=== PATIENT | male | born 1995 | race Caucasian/White ===

== ENCOUNTER 2022-10-08 21:24 | Inpatient (IN) | payer MEDICAID, OTHER, SELFPAY ==
[2022-10-08 21:31] VITALS: BP 117/85; PULSE 82; RESP 22; TEMP 36.6; O2SAT 96; BMI 38.3
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
[2022-10-08 22:05] LABS: MANUAL DIFF FLAG NO
[2022-10-08 22:07] LABS: Basophils Absolute Auto 0.1 X10*3/uL (0.0-0.2); Eosinophils Absolute Auto 0.3 X10*3/uL (0.0-0.4); Eosinophils Percent Auto 3.7 % (0-4); Hematocrit 42.8 % (42.0-52.0); Hemoglobin 14.3 g/dl (14.0-18.0); Imm Gran Abs Auto 0.02 X10*3/uL (0.00-0.03); Imm Gran Pct Auto 0.2 % (0.0-0.4); Lymphocytes Absolute Auto 3.7 X10*3/uL (1.2-4.9); Mean Corpuscular HGB Conc 33.4 g/dl (31.0-36.0); Mean Corpuscular Hemoglobin 27.4 pg (27.0-33.0); Mean Platelet Volume 9.6 fL (9.4-12.4); Monocytes Percent Auto 10.4 % (2-11); Neutrophils Absolute Auto 4.1 x10*3/uL (2.0-8.3); Neutrophils Percent Auto 44.7 % (45-73); Platelet Count 249 X10*3/uL (160-400); Red Blood Count 5.22 X10*6/uL (4.60-5.80); Red Cell Distribution Width 13.7 % (11.0-16.0); White Blood Count 9.1 X10*3/uL (4.8-10.8)
[2022-10-08 22:08] LABS: Appearance Urine Clear; Color Urine Yellow; Glucose Urine UA Negative (Negative); Leukocyte Esterase Urine Negative (Negative); Nitrite Urine Negative (Negative); Urine Blood Negative (Negative); Urine Ketones Negative (Negative); Urine Protein Negative (Neg-Trace)
[2022-10-08 22:21] LABS: Amphetamine Screen Urine Not Detected (Not Detect); Barbiturates, Urine Not Detected (Not Detect); Benzodiazepines Screen Urine Not Detected (Not Detect); Cannabinoid Screen Urine POSITIVE (Not Detect); Cocaine Screen Urine Not Detected (Not Detect); Fentanyl, urine Not Detected (Not Detect); IDNOW Serial# 6674DD1D; Opiate Screen Urine Not Detected (Not Detect); Phencyclidine Screen Urine Not Detected (Not Detect)
[2022-10-08 22:22] LABS: COVID-19 Test Negative (Negative)
[2022-10-08 22:25] LABS: Acetaminophen LAB < 17 mcg/mL (<30); Alanine Aminotransferase 56 U/L (0-40); Alkaline Phosphatase 54 U/L (39-117); Anion Gap 13 (12-20); Aspartate Amino Transferase 31 U/L (5-37); Bilirubin Direct < 0.2 mg/dL (0.0-0.5); Bilirubin Total 0.2 mg/dL (0.0-1.0); Blood Urea Nitrogen 19 mg/dL (9-16); Calcium 9.1 mg/dL (8.4-10.2); Carbon Dioxide 23 mmol/L (22-29); Chloride 106 mmol/L (96-108); Estimated Glomerular Filt Rate > 60; Ethanol < 10 mg/dL; Glucose Random 96 mg/dL (60-115); Potassium 4.3 mmol/L (3.3-5.1); Salicylate < 5.0 mg/dL (15-30); Sodium 138 mmol/L (135-145); Total Protein 6.4 g/dL (6.5-8.0)
--- NOTE | 2022-10-09 | ECG_ITS ---
Test Reason : QT PROLONGATION Blood Pressure : / mmHG Vent. Rate : 060 BPM Atrial Rate : 060 BPM P-R Int : 136 ms QRS Dur : 102 ms QT Int : 422 ms P-R-T Axes : 050 045 035 degrees QTc Int : 422 ms Normal sinus rhythm Incomplete right bundle branch block Borderline ECG No previous ECGs available Referred By: Anna Steven Electronically Signed By:CHELY WYNN MD
--- NOTE | 2022-10-09 05:38 | PC.NURSE ---
Patient slept through the night, no distress observed/reported, behavior appropriate and non concerning, med rec completed/patient is not any medication at this time, per pharmacy claim history patient is off medication since February of last year, patient was assessed by [facility] in their clinic, disposition is section 12 inpatient bed search, VSS, will continue to monitor.
[2022-10-09 06:34] VITALS: BP 122/64; PULSE 116; RESP 14; TEMP 36.7; O2SAT 97
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
--- NOTE | 2022-10-09 17:44 | MHC.CARE ---
Seen by CARE team, he is bed search for [facility].
[2022-10-09] MEDS: OLANZapine 7.5 MG TABLET 15 MG PO (19:59)
[2022-10-09] MEDS: Divalproex Sodium ER 500 MG TAB.ER.24H PO (19:59)
[2022-10-09] MEDS: traZODone HCL 50 MG TABLET 150 MG PO (19:59)
--- NOTE | 2022-10-10 05:54 | PC.NURSE ---
Patient slept through the night, no distress observed/reported, behavior appropriate and non concerning, medication compliant, Disposition per [facility] is section 12 Inpatient Bed Search, VSS, will continue to monitor
[2022-10-10 06:23] VITALS: BP 136/77; PULSE 112; RESP 16; TEMP 36.6; O2SAT 97
[2022-10-10 14:00] VITALS: RESP 18
[2022-10-10] MEDS: traZODone HCL 50 MG TABLET 150 MG PO (20:12)
[2022-10-10] MEDS: Divalproex Sodium ER 500 MG TAB.ER.24H PO (20:12)
[2022-10-10] MEDS: OLANZapine 7.5 MG TABLET 15 MG PO (20:12)
[2022-10-10 23:39] LABS: Cholesterol 247 mg/dL; HDL Cholesterol 50 mg/dL; LDL Cholesterol Calculated 170 mg/dl; Triglycerides 135 mg/dL
[2022-10-10 23:53] LABS: Thyroid Stimulating Hormone 4.88 uIU/mL (0.32-4.0)
[2022-10-11 06:34] VITALS: BP 128/85; PULSE 115; RESP 19; TEMP 36.6; O2SAT 96
--- NOTE | 2022-10-11 07:15 | PC.NURSE ---
assumed care of patient, sec [address], resting comfortably in bed, plan for admission to [facility] today
[2022-10-11 07:17] LABS: Lipase 25 U/L (8-78)
[2022-10-11 07:44] LABS: Estimated Average Glucose 97 mg/dL
[2022-10-11 07:44] LABS: Estimated Average Glucose 100 mg/dL; Hemoglobin A1c % 5.1 %
[2022-10-11 07:47] VITALS: BP 110/51; PULSE 73; RESP 12; TEMP 36.7; O2SAT 97
[2022-10-11 10:04] VITALS: BP 113/73; PULSE 70; RESP 18; TEMP 36.8; O2SAT 97
--- NOTE | 2022-10-11 10:08 | MHC.EDTECH ---
Pt belongings moved from locker 4 to locker 10 in the pod upon transfer to main ED 9
[2022-10-11 12:48] LABS: Valproate 16.2 mcg/mL (50.0-100.0)
[2022-10-11 13:11] VITALS: BP 111/65; PULSE 59; RESP 18; O2SAT 97
--- NOTE | 2022-10-11 13:11 | PC.NURSE ---
pt is alert and oriented, skin appropriate for ethnicity, respirations even and unlabored, pt denies pain, denies si/hi, calm and cooperative pt awaiting room assignment
--- NOTE | 2022-10-11 14:37 | PC.NURSE ---
report given to astrid morales,
[2022-10-11 16:20] VITALS: BP 123/79; PULSE 84; RESP 18; TEMP 36.7; O2SAT 98
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
[2022-10-11] MEDS: OLANZapine 7.5 MG TABLET 15 MG PO (20:03)
[2022-10-11] MEDS: Divalproex Sodium ER 500 MG TAB.ER.24H PO (20:04)
[2022-10-11] MEDS: traZODone HCL 50 MG TABLET 150 MG PO (20:05)
[2022-10-12 08:00] VITALS: BP 111/63; PULSE 83; TEMP 36.6; O2SAT 98
[2022-10-12 08:58] LABS: Estimated Average Glucose 105 mg/dL; Hemoglobin A1c % 5.3 %
[2022-10-12 09:13] LABS: Alanine Aminotransferase 51 U/L (0-40); Albumin Level 3.9 g/dL (3.5-5.0); Alkaline Phosphatase 55 U/L (39-117); Anion Gap 13 (12-20); Aspartate Amino Transferase 20 U/L (5-37); Bilirubin Direct < 0.2 mg/dL (0.0-0.5); Bilirubin Total 0.4 mg/dL (0.0-1.0); Blood Urea Nitrogen 17 mg/dL (9-16); Carbon Dioxide 25 mmol/L (22-29); Chloride 106 mmol/L (96-108); Cholesterol 269 mg/dL; Creatinine Clr Calc Pharmacy 141.9; Estimated Glomerular Filt Rate > 60; Glucose Fasting 91 mg/dL (60-99); HDL Cholesterol 36 mg/dL; LDL Cholesterol Calculated 217 mg/dl; Potassium 4.4 mmol/L (3.3-5.1); Sodium 140 mmol/L (135-145); Total Protein 6.2 g/dL (6.5-8.0); Triglycerides 81 mg/dL
[2022-10-12 09:45] LABS: Folate 10.3 ng/mL (> or = 4.0); Vitamin B12 722 pg/mL (200-900)
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
[2022-10-12 20:15] VITALS: BP 115/72; PULSE 91; RESP 16; TEMP 36.6; O2SAT 96
[2022-10-12] MEDS: traZODone HCL 50 MG TABLET 150 MG PO (20:24)
[2022-10-12] MEDS: Divalproex Sodium ER 500 MG TAB.ER.24H 1000 MG PO (20:24)
[2022-10-12] MEDS: OLANZapine 10 MG TABLET 20 MG PO (20:24)
[2022-10-13 09:38] VITALS: BP 111/58; PULSE 79; TEMP 36.2; O2SAT 97
--- NOTE | 2022-10-13 14:03 | HO.PSYCHPN ---
Subjective Subjective Date of Service: 10/13/22 Reason For Visit: Psychosis Interim History: calm, cooperative, pleasant. states he slept well on new regimen. asking about discharge, discuss his 3-day notice maturing tuesday and that tuesday he will be discharged or filed on. per staff, 3-day up 10/15. pleasant. feels OK. no SI/HI/AVH but +RIS. showered. eating and sleeping well. denied dep/anx. Mental Status Exam Mental Status Exam Narrative: adequately dressed and groomed. cooperative, no PMA/PMR. speech nml rate, amount, loudness, tone, latency. thoughts linear and logical. affect full range, normo-intense, non-labile. mood euthymic. no SI/SIBI/HI/AVH expressed. Diagnostics Vital Signs (24Hr): Vital Signs - 24 hr 10/12/22 20:15 10/13/22 09:38 Temperature 97.8 F 97.1 F Pulse Rate 91 79 Respiratory Rate 16 Blood Pressure 115/72 111/58 L Pulse Oximetry 96 97 Oxygen Delivery Method Room Air Room Air BMI result Body Mass Index 38.3 Labs 10/08/22 21:56 10/12/22 08:18 Labs: Laboratory Results - last 48 hr 10/12/22 10/12/22 10/12/22 08:18 08:18 08:18 Sodium 140 Potassium 4.4 Chloride 106 Carbon Dioxide 25 Anion Gap 13 BUN 17 H Creatinine 0.93 Estim Creat Clear Calc 141.9 Estimated GFR > 60 Fasting Glucose 91 Estimat Average Glucose 105 Hemoglobin A1c % 5.3 Calcium 9.0 Total Bilirubin 0.4 Direct Bilirubin < 0.2 AST 20 ALT 51 H Alkaline Phosphatase 55 Total Protein 6.2 L Albumin 3.9 Triglycerides 81 Cholesterol 269 LDL Cholesterol, Calc 217 HDL Cholesterol 36 Vitamin B12 722 Folate 10.3 Medications Medications Current Medications Acetaminophen (Acetaminophen 325 Mg Tablet) 650 mg PO Q6H PRN PRN Reason: Headache/Pain Mild Scale (1-3) Al Hydroxide/Mg Hydroxide (Magnesium Hydrox/Alum Hydrox 30 Ml Oral.Susp) 30 ml PO Q6H PRN PRN Reason: Heartburn/Nausea Divalproex Sodium (Divalproex Sodium Er 500 Mg Tab.Er.24h) 1,000 mg PO BEDTIME KATELYN Last Admin: 10/12/22 20:24 Dose: 1,000 mg Hydroxyzine HCl (Hydroxyzine Hcl 25 Mg Tablet) 25 mg PO Q6H PRN PRN Reason: Anxiety Magnesium Hydroxide (Milk Of Magnesia 30 Ml Oral.Susp) 30 ml PO DAILY PRN PRN Reason: Constipation Nicotine Polacrilex (Nicotine Polacrilex 2 Mg Gum) 4 mg BUCCAL Q2H PRN PRN Reason: Nicotine Cravings Olanzapine (Olanzapine 10 Mg Tablet) 20 mg PO BEDTIME KATELYN Last Admin: 10/12/22 20:24 Dose: 20 mg Trazodone HCl (Trazodone Hcl 50 Mg Tablet) 150 mg PO BEDTIME KATELYN Last Admin: 10/12/22 20:24 Dose: 150 mg Trazodone HCl (Trazodone Hcl 50 Mg Tablet) 50 mg PO BEDTIME PRN PRN Reason: Insomnia Allergies Allergies Allergy/AdvReac Type Severity Reaction Status Date / Time No Known Allergies Allergy Verified 10/08/22 21:32 Assessment & Plan Assessment & Plan (1) Schizoaffective disorder, bipolar type: Status: Acute Code(s): F25.0 - Schizoaffective disorder, bipolar type (2) Developmental disability: Status: Acute Code(s): F89 - Unspecified disorder of psychological development Plan 10/12: increase zyprexa to 20 mg QHS for psychosis and sleep. increase VPA to 1000 mg QHS for sleep and mood stabilization. continue trazodone 150 mg QHS for sleep. 10/13: slept well, denies Sx. continue current mgmt. 3-day notice matures 10/15. Reason for contiued inpatient stay Substantial Risk for: rapid decompensation Time Spent With Patient Time: Total time managing care of this patient today _25___ minutes.
[2022-10-13 20:00] VITALS: BP 133/84; PULSE 99; TEMP 36.6; O2SAT 94
[2022-10-13] MEDS: OLANZapine 10 MG TABLET 20 MG PO (20:25)
[2022-10-13] MEDS: traZODone HCL 50 MG TABLET 150 MG PO (20:25)
[2022-10-13] MEDS: Divalproex Sodium ER 500 MG TAB.ER.24H 1000 MG PO (20:25)
[2022-10-14 09:00] VITALS: BP 129/70; PULSE 85; RESP 18; TEMP 36.6; O2SAT 96
[2022-10-14] MEDS: OLANZapine 10 MG TABLET PO (10:40)
[2022-10-14] MEDS: Divalproex Sodium ER 500 MG TAB.ER.24H 1000 MG PO ×2 (11:04→20:01)
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
[2022-10-14 18:00] VITALS: BP 115/56; PULSE 68; RESP 18; TEMP 36.6; O2SAT 97
[2022-10-14] MEDS: OLANZapine 10 MG TABLET 20 MG PO (20:01)
[2022-10-14] MEDS: traZODone HCL 50 MG TABLET 150 MG PO (20:01)
[2022-10-15] MEDS: Divalproex Sodium ER 500 MG TAB.ER.24H 1000 MG PO (08:19)
[2022-10-15] MEDS: OLANZapine 10 MG TABLET PO (08:19)
[2022-10-15 09:00] VITALS: BP 136/76; PULSE 76; RESP 18; TEMP 36.3; O2SAT 98
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
--- NOTE | 2022-10-15 12:07 | PC.NURSE ---
Pt is alert and cooperative with discharge plan. He is discharged home in care of mother. He denies ideation, plan or intent to harm self or others. He denies physical complaint
== END 2022-10-15 12:24 | disposition home or self-care (01) | DRG 750 ==
LOC: HO.ED 10-11 09:38 → HO.PADLT16 10-11 16:04
PROVIDERS: Social Worker; Admitting Provider Psychiatry & Neurology Psychiatry; Emergency Provider Emergency Medicine; Visit Provider Psychiatry & Neurology Psychiatry
DX: F25.0 Schizoaffective disorder, bipolar type (principal); R45.851 Suicidal ideations; R45.850 Homicidal ideations; Z91.14 Patient's other noncompliance with medication regimen; R62.50 Unspecified lack of expected normal physiological development in childhood; F17.210 Nicotine dependence, cigarettes, uncomplicated; Z20.822 Contact with and (suspected) exposure to COVID-19; Z71.6 Tobacco abuse counseling; Z79.899 Other long term (current) drug therapy
CPT/HCPCS: 36415; 80053; 80061; 80076; 80143; 80164; 80179; 80307; 81003; 82077; 82248; 82607; 82746; 83036; 83690; 84443; 85025; 87635; 93005; 99285; S9485

== ENCOUNTER 2023-01-04 22:33 | Inpatient (IN) | payer OTHER, SELFPAY ==
[2023-01-04 22:36] VITALS: BP 129/79; PULSE 86; RESP 16; TEMP 36.4; O2SAT 97; BMI 34.2
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
[2023-01-04 22:53] LABS: Appearance Urine Clear; Color Urine Yellow; Glucose Urine UA Negative (Negative); Leukocyte Esterase Urine Negative (Negative); Nitrite Urine Negative (Negative); PH 5.5 (5.0-9.0); Specific Gravity - Urine >= 1.030 (1.005-1.025); Urine Blood Negative (Negative); Urine Ketones 15 mg/dL (Negative); Urine Protein Negative (Neg-Trace)
[2023-01-04 23:03] LABS: Amphetamine Screen Urine Not Detected (Not Detect); Barbiturates, Urine Not Detected (Not Detect); Benzodiazepines Screen Urine Not Detected (Not Detect); Cannabinoid Screen Urine POSITIVE (Not Detect); Cocaine Screen Urine Not Detected (Not Detect); Fentanyl, urine POSITIVE (Not Detect); Opiate Screen Urine Not Detected (Not Detect); Phencyclidine Screen Urine Not Detected (Not Detect)
[2023-01-04 23:07] LABS: IDNOW Serial# 08D9AD1C
[2023-01-04 23:08] LABS: COVID-19 Test Negative (Negative)
[2023-01-04 23:35] LABS: MANUAL DIFF FLAG NO
[2023-01-04 23:36] LABS: Basophils Absolute Auto 0.2 X10*3/uL (0.0-0.2); Basophils Percent Auto 1.4 % (0-2); Eosinophils Absolute Auto 0.7 X10*3/uL (0.0-0.4); Eosinophils Percent Auto 6.1 % (0-4); Hematocrit 43.7 % (42.0-52.0); Hemoglobin 14.5 g/dl (14.0-18.0); Imm Gran Abs Auto 0.03 X10*3/uL (0.00-0.03); Imm Gran Pct Auto 0.3 % (0.0-0.4); Lymphocytes Absolute Auto 3.9 X10*3/uL (1.2-4.9); Mean Corpuscular HGB Conc 33.2 g/dl (31.0-36.0); Mean Corpuscular Hemoglobin 27.8 pg (27.0-33.0); Mean Corpuscular Volume 83.7 fL (80.0-98.0); Mean Platelet Volume 9.9 fL (9.4-12.4); Monocytes Absolute Auto 0.9 X10*3/uL (0.1-1.2); Monocytes Percent Auto 8.2 % (2-11); Neutrophils Absolute Auto 5.5 x10*3/uL (2.0-8.3); Platelet Count 256 X10*3/uL (160-400); Red Blood Count 5.22 X10*6/uL (4.60-5.80); Red Cell Distribution Width 14.1 % (11.0-16.0); White Blood Count 11.2 X10*3/uL (4.8-10.8)
[2023-01-04 23:52] LABS: Valproate 54.3 mcg/mL (50.0-100.0)
[2023-01-04 23:56] LABS: Acetaminophen LAB < 17 mcg/mL (<30); Alanine Aminotransferase 22 U/L (0-40); Albumin Level 3.9 g/dL (3.5-5.0); Alkaline Phosphatase 50 U/L (39-117); Anion Gap 15 (12-20); Aspartate Amino Transferase 18 U/L (5-37); Bilirubin Total 0.3 mg/dL (0.0-1.0); Blood Urea Nitrogen 17 mg/dL (9-16); Calcium 9.1 mg/dL (8.4-10.2); Carbon Dioxide 23 mmol/L (22-29); Chloride 109 mmol/L (96-108); Creatinine Clr Calc Pharmacy 133.8; Estimated Glomerular Filt Rate > 60; Ethanol < 10 mg/dL; Glucose Random 111 mg/dL (60-115); Potassium 4.3 mmol/L (3.3-5.1); Salicylate < 5.0 mg/dL (15-30); Sodium 143 mmol/L (135-145); Total Protein 6.3 g/dL (6.5-8.0)
--- NOTE | 2023-01-05 02:21 | MHC.CARE ---
Pt was evaluated by the CARE Team and is an inpatient bedsearch at this time.
[2023-01-05 05:10] VITALS: BP 115/69; PULSE 77; RESP 17; TEMP 36.4; O2SAT 96
--- NOTE | 2023-01-05 05:46 | PC.NURSE ---
Patient slept through the light, no distress observed/reported, med rec completed/pending provider's approval, behavior non concerning, labs completed/resulted, patient engaged well with care Team, disposition section 12 inpatient bed search, VSS, will continue to monitor.
[2023-01-05 13:26] VITALS: BP 100/56; PULSE 75; RESP 15; TEMP 36.2; O2SAT 100
--- NOTE | 2023-01-05 13:37 | PC.NURSE ---
Pt ate lunch. Affect is bright. Aware he is being admitted to -3. No dangerous behaviors noted.
[2023-01-05 13:53] VITALS: BP 140/81; PULSE 89; RESP 18; TEMP 36.4; O2SAT 97
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
[2023-01-05 20:05] VITALS: BP 127/65; PULSE 98; RESP 16; TEMP 36.6; O2SAT 95
[2023-01-05] MEDS: Divalproex Sodium ER 500 MG TAB.ER.24H 1000 MG PO (20:28)
[2023-01-05] MEDS: OLANZapine 10 MG TABLET PO (20:28)
[2023-01-05] MEDS: traZODone HCL 100 MG TABLET PO (20:28)
[2023-01-06 07:00] VITALS: BMI 38.4
[2023-01-06 08:59] LABS: Estimated Average Glucose 103 mg/dL; Hemoglobin A1c % 5.2 %
[2023-01-06 09:07] LABS: Alanine Aminotransferase 19 U/L (0-40); Albumin Level 4.3 g/dL (3.5-5.0); Alkaline Phosphatase 53 U/L (39-117); Anion Gap 14 (12-20); Aspartate Amino Transferase 15 U/L (5-37); Bilirubin Total 0.5 mg/dL (0.0-1.0); Blood Urea Nitrogen 12 mg/dL (9-16); Calcium 9.2 mg/dL (8.4-10.2); Carbon Dioxide 25 mmol/L (22-29); Chloride 106 mmol/L (96-108); Cholesterol 256 mg/dL; Creatinine Clr Calc Pharmacy 123.5; Estimated Glomerular Filt Rate > 60; Glucose Fasting 92 mg/dL (60-99); HDL Cholesterol 36 mg/dL; LDL Cholesterol Calculated 196 mg/dl; Potassium 4.6 mmol/L (3.3-5.1); Sodium 140 mmol/L (135-145); Total Protein 6.6 g/dL (6.5-8.0); Triglycerides 123 mg/dL
[2023-01-06 09:10] VITALS: BP 133/76; PULSE 81; RESP 20; TEMP 36.6; O2SAT 98
[2023-01-06 09:42] LABS: Folate 7.3 ng/mL (> or = 4.0); Thyroid Stimulating Hormone 1.82 uIU/mL (0.32-4.0); Vitamin B12 775 pg/mL (200-900)
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
[2023-01-06 20:05] VITALS: BP 113/63; PULSE 79; RESP 18; TEMP 36.6; O2SAT 97
[2023-01-06] MEDS: Divalproex Sodium ER 500 MG TAB.ER.24H 1000 MG PO (20:09)
[2023-01-06] MEDS: traZODone HCL 100 MG TABLET PO (20:09)
[2023-01-06] MEDS: OLANZapine 10 MG TABLET PO (20:11)
[2023-01-07 06:00] VITALS: BP 160/90; PULSE 70; RESP 16; TEMP 36.8; O2SAT 97
[2023-01-07] MEDS: traZODone HCL 50 MG TABLET PO (19:44)
[2023-01-07] MEDS: OLANZapine 10 MG TABLET PO ×2 (19:44→19:48)
[2023-01-07] MEDS: Divalproex Sodium ER 500 MG TAB.ER.24H 1000 MG PO (19:44)
[2023-01-07] MEDS: traZODone HCL 100 MG TABLET PO (19:44)
[2023-01-07] MEDS: LORazepam 1 MG TABLET 2 MG PO (19:48)
[2023-01-07 20:16] VITALS: BP 122/73; PULSE 76; RESP 18; TEMP 36.8; O2SAT 97
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
[2023-01-08 11:58] VITALS: BP 120/64; PULSE 78; TEMP 36.6; O2SAT 98
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
[2023-01-08] MEDS: LORazepam 1 MG TABLET PO ×2 (12:40→20:09)
[2023-01-08] MEDS: OLANZapine 5 MG TABLET PO (12:40)
--- NOTE | 2023-01-08 13:29 | PC.NURSE ---
At 1245, pt was in the hallway when he started to yell I just want to go home! I need to leave now! Pt was redirected into the group room where he continued to yell and cry but otherwise remained in behavioral control. Pt stated he was worried about his mom and said something could happen to her and I won't even know it because I'm here. RN offered PRN Ativan and Zyprexa PO which pt took willingly, pt eventually settled down and retreated back to his room.
[2023-01-08 18:00] VITALS: BP 110/65; PULSE 81; RESP 16; TEMP 36.6; O2SAT 97
[2023-01-08] MEDS: OLANZapine 10 MG TABLET PO (20:06)
[2023-01-08] MEDS: Divalproex Sodium ER 250 MG TAB.ER.24H 1250 MG PO (20:06)
[2023-01-08] MEDS: traZODone HCL 100 MG TABLET PO (20:06)
[2023-01-09 08:45] VITALS: BP 119/77; PULSE 80; TEMP 36.7; O2SAT 97
[2023-01-09] MEDS: LORazepam 1 MG TABLET PO ×2 (09:02→19:54)
[2023-01-09] MEDS: OLANZapine 5 MG TABLET PO (09:02)
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
--- NOTE | 2023-01-09 11:38 | P.PNPSI_ITS ---
Subjective Subjective Date of Service: 01/09/23 Reason For Visit: SI Subjective Notes: Conditional Voluntary and 3 Day Healthcare Proxy: No Guardianship: No Medical Problems Affecting Mental Status: No Interim History: Patient was seen and discussed in rounds today. Records and plans were re viewed. He has been visible and cooperative. He is working towards possible discharge by Tuesday. He did have an outburst yesterday but was able to be calmed down. P.r.n. medications have been very helpful to him. No complaints today. Eating and sleeping adequately. No changes or additions today P Medication Compliance: Yes Side effects from medications: No Attending Groups: Intermittent Review of Systems Review of Systems Yes all other systems are reviewed and are negative Mental Status Exam Mental Status Exam Narrative: Today's visit he is alert, oriented and pleasant. Normal speech. Moderate eye contact. Affect is appropriate and constricted. No acute signs of psychosis. No SI. Cognitively he is grossly intact. Judgment is intact Diagnostics Vital Signs (24Hr): Vital Signs - 24 hr 01/08/23 11:58 01/08/23 18:00 01/09/23 08:45 Temperature 98 F 97.9 F 98.1 F Pulse Rate 78 81 80 Respiratory Rate 16 Blood Pressure 120/64 110/65 119/77 Pulse Oximetry 98 97 97 Oxygen Delivery Method Room Air Room Air Room Air BMI result Body Mass Index 38.4 Labs 01/04/23 23:29 01/06/23 08:28 Medications Medications Current Medications Acetaminophen (Acetaminophen 325 Mg Tablet) 650 mg PO Q6H PRN PRN Reason: Headache/Pain Mild Scale (1-3) Al Hydroxide/Mg Hydroxide (Magnesium Hydrox/Alum Hydrox 30 Ml Oral.Susp) 30 ml PO Q6H PRN PRN Reason: Heartburn/Nausea Divalproex Sodium (Divalproex Sodium Er 250 Mg Tab.Er.24h) 1,250 mg PO BEDTIME KATELYN Last Admin: 01/08/23 20:06 Dose: 1,250 mg Hydroxyzine HCl (Hydroxyzine Hcl 25 Mg Tablet) 25 mg PO Q6H PRN PRN Reason: Anxiety Lorazepam (Lorazepam 1 Mg Tablet) 1 mg PO BID PRN PRN Reason: agitation Last Admin: 01/09/23 09:02 Dose: 1 mg Magnesium Hydroxide (Milk Of Magnesia 30 Ml Oral.Susp) 30 ml PO DAILY PRN PRN Reason: Constipation Olanzapine (Olanzapine 10 Mg Tablet) 10 mg PO BEDTIME KATELYN Last Admin: 01/08/23 20:06 Dose: 10 mg Olanzapine (Olanzapine 5 Mg Tablet) 5 mg PO BID PRN PRN Reason: agiation Last Admin: 01/09/23 09:02 Dose: 5 mg Trazodone HCl (Trazodone Hcl 100 Mg Tablet) 100 mg PO BEDTIME KATELYN Last Admin: 01/08/23 20:06 Dose: 100 mg Trazodone HCl (Trazodone Hcl 50 Mg Tablet) 50 mg PO BEDTIME MRX1 PRN PRN Reason: Insomnia Last Admin: 01/07/23 19:44 Dose: 50 mg Allergies Allergies Allergy/AdvReac Type Severity Reaction Status Date / Time No Known Allergies Allergy Verified 10/08/22 21:32 Assessment & Plan Assessment & Plan (1) Developmental disability: Status: Acute Code(s): F89 - Unspecified disorder of psychological development (2) Schizoaffective disorder, bipolar type: Status: Acute Code(s): F25.0 - Schizoaffective disorder, bipolar type Plan 01/09: Continue current regimen and plans Reason for continued inpatient stay Substantial Risk for: med/psych decompensation Time Spent With Patient Time: Total time managing care of this patient today ____ minutes.
[2023-01-09] MEDS: traZODone HCL 100 MG TABLET PO (19:52)
[2023-01-09] MEDS: OLANZapine 10 MG TABLET PO (19:53)
[2023-01-09] MEDS: Divalproex Sodium ER 250 MG TAB.ER.24H 1250 MG PO (19:53)
[2023-01-09 20:18] VITALS: BP 124/74; PULSE 71; RESP 16; TEMP 36.6; O2SAT 98
[2023-01-10] MEDS: OLANZapine 5 MG TABLET PO ×2 (08:36→10:51)
[2023-01-10] MEDS: LORazepam 1 MG TABLET PO (08:36)
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
[2023-01-10 09:29] VITALS: BP 115/78; PULSE 99; RESP 22; TEMP 36.8; O2SAT 96
--- NOTE | 2023-01-10 09:59 | PC.NURSE ---
Patient alert, oriented, verbalized understanding of discharge plan. Patient has no belongings other than what he is wearing. Patient denies SI/HI, denies AH/VH, reports he is eager for discharge. Patient was upset in the morning due to anxiety about discharge, but accepted medications and maintained behavioral control. He is currently calm, pleasant, looking forward to returning home.
--- NOTE | 2023-01-10 11:01 | PC.NURSE ---
Patient became upset initially because of impatience related to discharge time- patient would like to be discharged now but aware that he has to wait for his mother. Patient asked for medication, E Jojo aware, and medicated as ordered by LEAD GENERATION REPRESENTATIVE and requested by patient. Patient then felt as if he was treated rudely by staff, encouraged to fill out human rights form and to maintain behavioral control. SW sitting with patient currently to assist patient in filling out complaint if desired.
--- NOTE | 2023-01-10 11:49 | PC.NURSE ---
Late entry: pt able to regain calm and remained in behavioral control. Discharged to care of mother.
== END 2023-01-10 11:40 | disposition home or self-care (01) | DRG 750 ==
LOC: HO.ED 01-05 07:41 → HO.PADLT16 01-05 11:41
PROVIDERS: Emergency Medicine; Social Worker; Admitting Provider Psychiatry & Neurology Psychiatry; Emergency Provider Emergency Medicine Emergency Medical Services; Visit Provider Psychiatry & Neurology Psychiatry
DX: F25.0 Schizoaffective disorder, bipolar type (principal); R45.851 Suicidal ideations; F89 Unspecified disorder of psychological development; F17.210 Nicotine dependence, cigarettes, uncomplicated; Z71.6 Tobacco abuse counseling; Z20.822 Contact with and (suspected) exposure to COVID-19; Z79.899 Other long term (current) drug therapy
CPT/HCPCS: 36415; 80053; 80061; 80143; 80164; 80179; 80307; 81003; 82077; 82607; 82746; 83036; 84443; 85025; 87635; 99285; S9485

== ENCOUNTER 2023-07-06 15:47 | Inpatient (IN) | payer OTHER, SELFPAY ==
[2023-07-06 15:53] VITALS: BP 128/84; PULSE 92; O2SAT 99
[2023-07-06 15:55] VITALS: BP 123/81; PULSE 81; RESP 18; TEMP 36.5; O2SAT 98
[2023-07-06 16:10] VITALS: BP 123/81; PULSE 79; RESP 18; TEMP 36.5; O2SAT 98; BMI 38.7
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
--- NOTE | 2023-07-06 17:08 | PC.NURSE ---
1:1 remains at bedside. to RN pt continues to deny SI/HI/AH/VH. talks well. no distress. calm, cooperative. on airborne precautions r/t sick contact at home
[2023-07-06 17:23] LABS: MANUAL DIFF FLAG NO
[2023-07-06 17:26] LABS: Appearance Urine Clear; Color Urine Yellow; Glucose Urine UA Negative (Negative); Leukocyte Esterase Urine Negative (Negative); Nitrite Urine Negative (Negative); PH 6.5 (5.0-9.0); Urine Blood Negative (Negative); Urine Ketones Negative (Negative); Urine Protein Negative (Neg-Trace)
[2023-07-06 17:30] LABS: Basophils Percent Auto 0.5 % (0-2); Eosinophils Absolute Auto 0.1 X10*3/uL (0.0-0.4); Eosinophils Percent Auto 0.8 % (0-4); Hematocrit 45.3 % (42.0-52.0); Hemoglobin 15.1 g/dl (14.0-18.0); Imm Gran Abs Auto 0.03 X10*3/uL (0.00-0.03); Imm Gran Pct Auto 0.3 % (0.0-0.4); Lymphocytes Absolute Auto 3.3 X10*3/uL (1.2-4.9); Lymphocytes Percent Auto 37.3 % (20-40); Mean Corpuscular HGB Conc 33.3 g/dl (31.0-36.0); Mean Corpuscular Hemoglobin 27.1 pg (27.0-33.0); Mean Corpuscular Volume 81.2 fL (80.0-98.0); Mean Platelet Volume 9.8 fL (9.4-12.4); Monocytes Absolute Auto 0.6 X10*3/uL (0.1-1.2); Monocytes Percent Auto 7.2 % (2-11); Neutrophils Absolute Auto 4.8 x10*3/uL (2.0-8.3); Neutrophils Percent Auto 53.9 % (45-73); Platelet Count 240 X10*3/uL (160-400); Red Blood Count 5.58 X10*6/uL (4.60-5.80); Red Cell Distribution Width 13.9 % (11.0-16.0); White Blood Count 8.9 X10*3/uL (4.8-10.8)
[2023-07-06 17:31] LABS: Amphetamine Screen Urine Not Detected (Not Detect); Barbiturates, Urine Not Detected (Not Detect); Benzodiazepines Screen Urine Not Detected (Not Detect); Cannabinoid Screen Urine POSITIVE (Not Detect); Cocaine Screen Urine Not Detected (Not Detect); Fentanyl, urine Not Detected (Not Detect); Opiate Screen Urine Not Detected (Not Detect); Phencyclidine Screen Urine Not Detected (Not Detect)
[2023-07-06 17:33] LABS: COVID-19 Test Positive (Negative); IDNOW Serial# 9DB6401D
[2023-07-06 17:50] LABS: Alanine Aminotransferase 23 U/L (0-40); Albumin Level 3.5 g/dL (3.5-5.0); Alkaline Phosphatase 34 U/L (39-117); Anion Gap 12 (12-20); Aspartate Amino Transferase 20 U/L (5-37); Bilirubin Total 0.3 mg/dL (0.0-1.0); Blood Urea Nitrogen 8 mg/dL (9-16); Calcium 8.6 mg/dL (8.4-10.2); Carbon Dioxide 22 mmol/L (22-29); Chloride 111 mmol/L (96-108); Estimated Glomerular Filt Rate > 60; Ethanol < 10 mg/dL; Glucose Random 93 mg/dL (60-115); Potassium 4.1 mmol/L (3.3-5.1); Sodium 141 mmol/L (135-145); Total Protein 5.5 g/dL (6.5-8.0)
--- NOTE | 2023-07-06 19:28 | PC.NURSE ---
pt observed sleeping, covid + sitter present
[2023-07-06 20:57] VITALS: BP 148/127; PULSE 61; O2SAT 94
[2023-07-06 21:50] VITALS: BP 93/53
[2023-07-07 02:49] VITALS: BP 104/67; PULSE 64; RESP 13; TEMP 36.4; O2SAT 96
[2023-07-07 06:07] VITALS: BP 101/59; PULSE 80; RESP 17; TEMP 37.2; O2SAT 97
--- NOTE | 2023-07-07 06:11 | PC.NURSE ---
pt assessed during the shift, pt slept, sitter present
[2023-07-07 07:59] VITALS: TEMP 37.2
[2023-07-07] MEDS: HaloperidoL 5 MG TABLET 10 MG PO (10:15)
[2023-07-07] MEDS: LORazepam 1 MG TABLET 2 MG PO (10:15)
[2023-07-07] MEDS: diphenhydrAMINE HCL 25 MG CAPSULE 50 MG PO (10:15)
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
[2023-07-07 12:50] VITALS: RESP 18
[2023-07-07 17:07] VITALS: RESP 18
--- NOTE | 2023-07-07 18:31 | PC.NURSE ---
Since his behavioral episode this morning Charles has been able to remain in control and rest in his room. Minimal engagement.
[2023-07-07 23:05] VITALS: BP 124/69; PULSE 86; RESP 18; TEMP 36.3; O2SAT 97
--- NOTE | 2023-07-08 04:33 | PC.NURSE ---
Patient slept through the night, no distress observed/reported, behavior non concerning, COVID +/precaution is place/follows precaution direction well, disposition per care team is section 12 inpatient bed search, med rec completed/off his medication since September, labs completed/resulted, will continue to monitor.
--- NOTE | 2023-07-08 07:07 | PC.NURSE ---
patient appears to remain asleep at present respirations are even and unlabored patient appears in no distress
[2023-07-08] MEDS: OLANZapine 10 MG TABLET PO ×2 (08:43→14:40)
[2023-07-08] MEDS: LORazepam 1 MG TABLET 2 MG PO (08:43)
--- NOTE | 2023-07-08 09:28 | PHA.MEDREC ---
Pharmacy Consult ? Medication Reconciliation RN has completed the medication reconciliation. Pharmacy reviewed.
[2023-07-08] MEDS: LORazepam 1 MG TABLET PO (14:38)
[2023-07-08 17:45] VITALS: BP 123/73; PULSE 57; TEMP 36.2
[2023-07-08] MEDS: traZODone HCL 50 MG TABLET PO (20:23)
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
[2023-07-09 08:16] LABS: Estimated Average Glucose 100 mg/dL; Hemoglobin A1c % 5.1 % (<6.0)
[2023-07-09 08:51] LABS: Folate 7.1 ng/mL (> or = 4.0); Vitamin B12 811 pg/mL (200-900)
[2023-07-09 08:55] LABS: Cholesterol 198 mg/dL (<200); HDL Cholesterol 38 mg/dL (>40); LDL Cholesterol Calculated 141 mg/dL (<100); Magnesium 1.9 mg/dL (1.6-2.6); Triglycerides 98 mg/dL (<150)
[2023-07-09 09:03] VITALS: BP 113/77; PULSE 113; RESP 18; TEMP 36.4; O2SAT 96
[2023-07-09 09:10] LABS: Free T4 (Free Thyroxine) 0.99 ng/dL (0.71-1.85); Thyroid Stimulating Hormone 1.12 uIU/mL (0.32-4.0)
--- NOTE | 2023-07-09 09:55 | PM.EVENT ---
Event Note Date of Service: 07/09/23 Event Note: Patient severely agitated admitted yesterday due to HI against family. He is on section 12 and refused to sign CV on admission. He is COVID +. Patient became agitated. He was banging on window. Refusing to stay in room. Threatening to kill himself. Yelling. Would not calm. Refused PO medication. Threatening to destroy the hospital. Staff wasn't able to redirect. When approached started yelling at this examiner. Medication restraint ordered for risk to self and others. Zyprexa IM 10 mg x 1 Ativan 1 mg IM x 1. Time Spent With Patient Time: Total time managing care of this patient today ____ minutes.
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
[2023-07-09] MEDS: LORazepam 1 MG TABLET PO (10:04)
[2023-07-09] MEDS: hydrOXYzine HCL 25 MG TABLET PO (10:04)
[2023-07-09] MEDS: OLANZapine 10 MG TABLET PO (10:04)
[2023-07-09 16:50] VITALS: BP 119/64; PULSE 63; RESP 20; TEMP 36.3; O2SAT 97
--- NOTE | 2023-07-10 08:07 | HO.PSYCHPN ---
Subjective Subjective Date of Service: 07/10/23 Reason For Visit: schizophrenia Interim History: More pleasant . More approachable. He has been cooperative since yesterday morning's outburst. He stays in his room. Adherent to medications. He says he wants to continue on Zyprexa rather than switching to Invega. Intellectual limitation suspected based on interaction with patient. He is very concrete and answers with little elaboration. Review of Systems Review of Systems Yes all other systems are reviewed and are negative Mental Status Exam Mental Status Exam Narrative: Initially patient was extremely agitated banging on windows. After receiving PRN's patient was seen in his room. He had calmed. He was sitting in bed. He was more cooperative. He had good eye contact. He was alert and oriented. He had slightly dysarthric thick speech. He was guarded. He responded in a linear fashion to questions. He reported he felt calm now. Mood and affect were significantly calmer than AM. He denied SI/HI/AVH. No formal thought disorder. No overt delusions. Alert and oriented. Insight and judgment impaired. Diagnostics Vital Signs (24Hr): Vital Signs - 24 hr 07/09/23 09:03 07/09/23 16:50 Temperature 97.6 F 97.4 F Pulse Rate 113 H 63 Respiratory Rate 18 20 Blood Pressure 113/77 119/64 Pulse Oximetry 96 97 Oxygen Delivery Method Room Air Room Air BMI result Body Mass Index 38.7 Labs 07/06/23 17:18 07/06/23 17:18 Labs: Laboratory Results - last 48 hr 07/09/23 07:39 Estimat Average Glucose 100 Hemoglobin A1c % 5.1 Magnesium 1.9 Triglycerides 98 Cholesterol 198 LDL Cholesterol, Calc 141 H HDL Cholesterol 38 L Vitamin B12 811 Folate 7.1 TSH 1.12 Free T4 0.99 Medications Medications Current Medications Acetaminophen (Acetaminophen 325 Mg Tablet) 650 mg PO Q6H PRN PRN Reason: Headache/Pain Mild Scale (1-3) Al Hydroxide/Mg Hydroxide (Magnesium Hydrox/Alum Hydrox 30 Ml Oral.Susp) 30 ml PO Q6H PRN PRN Reason: Heartburn/Nausea Hydroxyzine HCl (Hydroxyzine Hcl 25 Mg Tablet) 25 mg PO Q6H PRN PRN Reason: Anxiety Last Admin: 07/09/23 10:04 Dose: 25 mg Lorazepam (Lorazepam 1 Mg Tablet) 1 mg PO TID PRN PRN Reason: anxiety/restlessness Stop: 07/12/23 23:59 Last Admin: 07/09/23 10:04 Dose: 1 mg Magnesium Hydroxide (Milk Of Magnesia 30 Ml Oral.Susp) 30 ml PO DAILY PRN PRN Reason: Constipation Olanzapine (Olanzapine 10 Mg Tablet) 10 mg PO TID PRN PRN Reason: Psychosis Stop: 07/11/23 23:59 Last Admin: 07/09/23 10:04 Dose: 10 mg Olanzapine (Olanzapine 10 Mg Tablet) 10 mg PO BID KATELYN Last Admin: 07/09/23 21:05 Dose: Not Given Trazodone HCl (Trazodone Hcl 50 Mg Tablet) 50 mg PO BEDTIME MRX1 PRN PRN Reason: Insomnia Last Admin: 07/08/23 20:23 Dose: 50 mg Allergies Allergies Allergy/AdvReac Type Severity Reaction Status Date / Time No Known Allergies Allergy Verified 07/06/23 17:07 Assessment & Plan Assessment & Plan (1) Mood disorder: Status: Acute Code(s): F39 - Unspecified mood [affective] disorder (2) Psychosis: Status: Acute Code(s): F29 - Unspecified psychosis not due to a substance or known physiological condition Plan 28 yo patient with a history of reported chronic bipolar disorder who presents with HI towards family. He was reportedly more stable when on Invega Sustenna. He says he was supposed to be on Olanzapine at home but has not been adherent. He refused to sign in voluntarily and is on section 12b. Plan: - Admit to M5 - Collateral information. - For now continue Zyprexa 10 mg BID. - Milieu therapy - Consider restarting Invega after clarification of history. - Dischage planning. 07/10: Continue current treatment plan. Reason for continued inpatient stay Substantial Risk for: harm to others and rapid decompensation Time Spent With Patient Time: Total time managing care of this patient today ____ minutes.
[2023-07-10 08:47] VITALS: BP 121/64; PULSE 63; RESP 16; TEMP 36.4; O2SAT 97
[2023-07-10] MEDS: hydrOXYzine HCL 25 MG TABLET PO (08:48)
[2023-07-10] MEDS: OLANZapine 10 MG TABLET PO ×3 (08:48→19:29)
[2023-07-10] MEDS: LORazepam 1 MG TABLET PO ×2 (08:48→13:10)
[2023-07-10 17:12] VITALS: BP 131/79; PULSE 64; RESP 18; TEMP 36.7; O2SAT 98
[2023-07-10] MEDS: traZODone HCL 50 MG TABLET PO (19:29)
[2023-07-11 08:33] VITALS: BP 124/73; PULSE 69; RESP 16; TEMP 36.2; O2SAT 96
[2023-07-11] MEDS: OLANZapine 10 MG TABLET PO ×3 (08:54→14:29)
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
[2023-07-11] MEDS: LORazepam 1 MG TABLET PO (10:23)
--- NOTE | 2023-07-11 14:28 | PC.NURSE ---
pt states he would like to receive the flu shot. Dr Dang notified for orders.
[2023-07-11] MEDS: hydrOXYzine HCL 25 MG TABLET PO (14:29)
[2023-07-11 18:00] VITALS: BP 100/57; PULSE 96; RESP 16; TEMP 35.9; O2SAT 100
[2023-07-11] MEDS: Paliperidone Palmitate 234 MG/1.5 ML SYRINGE IM (18:41)
[2023-07-11] MEDS: traZODone HCL 50 MG TABLET PO (19:20)
[2023-07-11] MEDS: OLANZapine 10 MG TABLET 20 MG PO (19:20)
[2023-07-12 08:27] VITALS: BP 124/76; PULSE 76; RESP 16; TEMP 36.4; O2SAT 97
[2023-07-12] MEDS: OLANZapine 10 MG TABLET PO (08:34)
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
[2023-07-12] MEDS: hydrOXYzine HCL 25 MG TABLET PO (10:51)
[2023-07-12] MEDS: LORazepam 1 MG TABLET PO (10:51)
== END 2023-07-12 11:15 | disposition home or self-care (01) | DRG 750 ==
LOC: HO.ED 07-08 08:41 → HO.PM5 07-08 14:29
PROVIDERS: Clinical Nurse Specialist Psychiatric/Mental Health, Adult; Nurse Practitioner Family; Admitting Provider Psychiatry & Neurology Psychiatry; Emergency Provider Emergency Medicine Emergency Medical Services; Visit Provider Psychiatry & Neurology Psychiatry
DX: F20.9 Schizophrenia, unspecified (principal); U07.1 COVID-19; R45.851 Suicidal ideations; R45.850 Homicidal ideations; Z91.148 Patient's other noncompliance with medication regimen for other reason; F17.210 Nicotine dependence, cigarettes, uncomplicated; Z23 Encounter for immunization; Z71.6 Tobacco abuse counseling; Z79.899 Other long term (current) drug therapy
CPT/HCPCS: 36415; 80053; 80061; 80307; 81003; 82607; 82746; 83036; 83735; 84439; 84443; 85025; 87635; 90686; 99285; J2426; S9485

== ENCOUNTER → 2023-07-08 14:22 | Outpatient (BNV) | payer OTHER, SELFPAY | PROVIDERS: Admitting Provider Psychiatry & Neurology Psychiatry; Emergency Provider Emergency Medicine Emergency Medical Services; Visit Provider Psychiatry & Neurology Psychiatry | DX: F39 Unspecified mood [affective] disorder (principal); F29 Unspecified psychosis not due to a substance or known physiological condition | CPT/HCPCS: 99231; 99232; 99499 ==

== ENCOUNTER 2023-09-02 19:44 | Emergency (ER) | payer OTHER, SELFPAY ==
[2023-09-02 20:07] VITALS: BP 131/84; PULSE 99; O2SAT 98
[2023-09-02 20:14] VITALS: BMI 38.8
[2023-09-02 20:21] VITALS: BP 124/79; PULSE 107; RESP 18; TEMP 36.9; O2SAT 97
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
[2023-09-02 20:43] LABS: MANUAL DIFF FLAG NO
[2023-09-02 20:51] LABS: Basophils Absolute Auto 0.1 X10*3/uL (0.0-0.2); Basophils Percent Auto 0.8 % (0-2); Eosinophils Absolute Auto 0.2 X10*3/uL (0.0-0.4); Eosinophils Percent Auto 1.2 % (0-4); Hemoglobin 14.3 g/dl (14.0-18.0); Imm Gran Abs Auto 0.04 X10*3/uL (0.00-0.03); Imm Gran Pct Auto 0.3 % (0.0-0.4); Lymphocytes Absolute Auto 2.8 X10*3/uL (1.2-4.9); Mean Corpuscular HGB Conc 33.3 g/dl (31.0-36.0); Mean Corpuscular Hemoglobin 27.6 pg (27.0-33.0); Mean Platelet Volume 9.1 fL (9.4-12.4); Monocytes Percent Auto 8.5 % (2-11); Neutrophils Absolute Auto 8.1 x10*3/uL (2.0-8.3); Neutrophils Percent Auto 66.2 % (45-73); Platelet Count 291 X10*3/uL (160-400); Red Blood Count 5.18 X10*6/uL (4.60-5.80); Red Cell Distribution Width 13.6 % (11.0-16.0); White Blood Count 12.3 X10*3/uL (4.8-10.8)
[2023-09-02 20:52] LABS: Amphetamine Screen Urine Not Detected (Not Detect); Barbiturates, Urine Not Detected (Not Detect); Benzodiazepines Screen Urine Not Detected (Not Detect); Cannabinoid Screen Urine POSITIVE (Not Detect); Cocaine Screen Urine Not Detected (Not Detect); Fentanyl, urine Not Detected (Not Detect); Opiate Screen Urine Not Detected (Not Detect); Phencyclidine Screen Urine Not Detected (Not Detect)
[2023-09-02 20:57] LABS: COVID-19 Test Negative (Negative); IDNOW Serial# 08D9AD1C
[2023-09-02 20:59] LABS: Valproate < 12.5 mcg/mL (50.0-100.0)
[2023-09-02 21:00] LABS: Alanine Aminotransferase 23 U/L (0-40); Albumin Level 3.7 g/dL (3.5-5.0); Alkaline Phosphatase 46 U/L (39-117); Anion Gap 14 (12-20); Aspartate Amino Transferase 23 U/L (5-37); Bilirubin Direct < 0.2 mg/dL (0.0-0.5); Bilirubin Total 0.1 mg/dL (0.0-1.0); Blood Urea Nitrogen 17 mg/dL (9-16); Calcium 8.3 mg/dL (8.4-10.2); Carbon Dioxide 22 mmol/L (22-29); Chloride 109 mmol/L (96-108); Creatinine Clr Calc Pharmacy 124.5; Estimated Glomerular Filt Rate > 60; Glucose Random 109 mg/dL (60-115); Potassium 3.8 mmol/L (3.3-5.1); Sodium 141 mmol/L (135-145); Total Protein 5.9 g/dL (6.5-8.0)
[2023-09-03 01:47] VITALS: BP 98/63; PULSE 74; RESP 16; TEMP 37; O2SAT 96
[2023-09-03 06:08] VITALS: BP 111/62; PULSE 61; RESP 16; TEMP 36.9; O2SAT 95
--- NOTE | 2023-09-03 07:59 | PC.NURSE ---
Pt denies hi/si, waiting on disposition from care team. Pt had breakfast this Am.
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
[2023-09-03] MEDS: OLANZapine ODT 10 MG TAB.RAPDIS TRANSLINGU (09:00)
[2023-09-03] MEDS: LORazepam 1 MG TABLET 2 MG PO (09:00)
--- NOTE | 2023-09-03 09:08 | PC.NURSE ---
Pt was able to be deescalated. Took PO meds, is calm and cooperative at this time.
--- NOTE | 2023-09-03 09:14 | PC.NURSE ---
This RN called [facility] [address] to reconcile med list, pt is now using [facility] however states this was a recent switch and had no med changes since switching pharmacy. [facility] closed at this time.
[2023-09-03] MEDS: OXcarbazepine 300 MG TABLET 600 MG PO ×2 (09:33→20:28)
--- NOTE | 2023-09-03 09:49 | PC.NURSE ---
pt changed over to POD attire, gave urine sample for ua. pt resting quietly in room. pt is calm and cooperative gilberto. denies SI/HI. offers no complaints gilberto.
[2023-09-03 10:21] LABS: Appearance Urine Clear; Color Urine Yellow; Glucose Urine UA Negative (Negative); Leukocyte Esterase Urine Negative (Negative); Nitrite Urine Negative (Negative); PH 6.5 (5.0-9.0); Specific Gravity - Urine 1.025 (1.005-1.025); Urine Blood Negative (Negative); Urine Ketones Negative (Negative); Urine Protein Negative (Neg-Trace)
--- NOTE | 2023-09-03 14:18 | PC.NURSE ---
pt ate lunch and returned his tray on rack. pt sts the food was good and was thankful. pt in good spirits, calm, and cooperative. pt back to room, resting quietly in bed.
[2023-09-03 15:39] VITALS: BP 116/67; PULSE 88; RESP 16; TEMP 36.9; O2SAT 99
--- NOTE | 2023-09-03 16:06 | PHA.MEDREC ---
Pharmacy Consult ? Medication Reconciliation Pharmacy has completed the medication reconciliation. Spoke to patient, patient's mother, and patient's pharmacy to confirm meds. Patient takes Invega Sustenna 234 mg IM QMONTH per mother. Per pharmacy, patient hasn't picked up depakote 750mg BID since December 2022 (30 DS). Leaving off med rec.
[2023-09-03] MEDS: OLANZapine 10 MG TABLET 20 MG PO (20:27)
[2023-09-03] MEDS: Mirtazapine 7.5 MG TABLET PO (20:27)
--- NOTE | 2023-09-03 20:30 | PC.NURSE ---
Pt medicated as per NOV. denies SI/HI/AH/VH
[2023-09-04 04:29] VITALS: BP 119/58; PULSE 52; RESP 17; TEMP 36.6; O2SAT 98
--- NOTE | 2023-09-04 04:42 | PC.NURSE ---
PT OOB independently to use bathroom and returned to bed. PT resting with eyes closed, respirations even and unlabored
[2023-09-04] MEDS: OXcarbazepine 300 MG TABLET 600 MG PO ×2 (07:04→20:10)
[2023-09-04] MEDS: OLANZapine 10 MG TABLET PO (07:04)
--- NOTE | 2023-09-04 09:10 | MHC.CARE ---
Addendum entered by Heike Lai 09/04/23 11:53: Call received from [facility] A-[facility], pt was declined for A-[facility]S bed Original Note: Referral faxed for A[facility] at [facility], will f/u with [facility] to see decision on pt
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
[2023-09-04] MEDS: LORazepam 1 MG TABLET 2 MG PO (10:34)
--- NOTE | 2023-09-04 10:38 | PC.NURSE ---
Pt approached nurse and apologized for outbursts. Patient was then helped with a shower and was allowed to vent feelings. This nurse offered medication to patient to help ease his anxiety and pt agreed. took po ativan and went back to room to lay down. will continue to monitor.
--- NOTE | 2023-09-04 16:56 | PC.NURSE ---
calm and cooperative, ambulating with steady gait on unit. Food and fluids provider per patients request
--- NOTE | 2023-09-04 19:06 | PC.NURSE ---
patient appears to remain at rest at present respirations are even and unlabored patient appears in no distress
[2023-09-04] MEDS: OLANZapine 10 MG TABLET 20 MG PO (20:10)
[2023-09-04] MEDS: Mirtazapine 7.5 MG TABLET PO (20:10)
[2023-09-04] MEDS: traZODone HCL 100 MG TABLET 200 MG PO (20:14)
[2023-09-04 20:35] VITALS: BP 140/92; PULSE 106; RESP 20; TEMP 36.3; O2SAT 98
[2023-09-05] MEDS: OXcarbazepine 300 MG TABLET 600 MG PO (07:48)
[2023-09-05] MEDS: OLANZapine 10 MG TABLET PO (07:48)
--- NOTE | 2023-09-05 09:16 | ECG_ITS ---
Test Reason : QT INTERVAL Blood Pressure : / mmHG Vent. Rate : 059 BPM Atrial Rate : 059 BPM P-R Int : 142 ms QRS Dur : 098 ms QT Int : 396 ms P-R-T Axes : 064 056 038 degrees QTc Int : 392 ms Sinus bradycardia Incomplete right bundle branch block Borderline ECG No previous ECGs available Referred By: Abdi Giraldo Electronically Signed By:CHELY WYNN MD
[2023-09-05 09:53] LABS: COVID-19 Test Negative (Negative); IDNOW Serial# 08D9AD1C
[2023-09-05] MEDS: LORazepam 1 MG TABLET PO (09:54)
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
--- NOTE | 2023-09-05 12:12 | PC.NURSE ---
Charles was OOB and observed socializing in the milieu this shift. One episode of agitation when [employer]le [employer] told him that he would not be discahrging home but would be going upstairs. Charles was able to be redirected and took 1mg Lorazepam to help with his anxiety afterwards. once Charles talked with the doctor he found out he would be discharging home with his mom and he was extremely happy verbalizing he was going to use my coping skills and not get upset . Denies SI/HI/AVH
== END 2023-09-05 12:16 | disposition home or self-care (01) ==
PROVIDERS: Emergency Medicine; Emergency Provider Emergency Medicine
DX: F25.9 Schizoaffective disorder, unspecified (principal); F79 Unspecified intellectual disabilities; F63.81 Intermittent explosive disorder; R00.1 Bradycardia, unspecified; Z11.52 Encounter for screening for COVID-19; Z20.822 Contact with and (suspected) exposure to COVID-19; Z79.899 Other long term (current) drug therapy
CPT/HCPCS: 36415; 80048; 80076; 80164; 80307; 81003; 83735; 85025; 87635; 93005; 99285; S9485

== ENCOUNTER → 2023-09-02 20:47 | Outpatient (BNV) | payer OTHER, SELFPAY | PROVIDERS: Emergency Provider Emergency Medicine; Visit Provider Social Worker | DX: F63.81 Intermittent explosive disorder (principal); F79 Unspecified intellectual disabilities | CPT/HCPCS: 99285 ==

== ENCOUNTER → 2023-09-05 09:16 | Outpatient (BNV) | payer OTHER, SELFPAY | PROVIDERS: Emergency Provider Emergency Medicine; Visit Provider Internal Medicine Cardiovascular Disease | DX: R00.1 Bradycardia, unspecified (principal) | CPT/HCPCS: 93010 ==